=== PATIENT | female | born 1990 | race African-American/Black ===

== ENCOUNTER 2025-03-21 14:22 | Emergency (ER) | payer OTHER ==
[2025-03-21] MEDS ORDERED: ACETAMINOPHEN 500 MG TAB ONE (15:52)
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
[2025-03-21 17:44] VITALS: TEMP 98
[2025-03-21 17:46] VITALS: O2SAT 100
[2025-03-21 17:47] VITALS: BP 103/62
== END 2025-03-21 17:31 | disposition left against medical advice (07) ==
LOC: ER 14:22
DX: T20.20XA Burn of second degree of head, face, and neck, unspecified site, initial encounter (principal); T22.10XA Burn of first degree of shoulder and upper limb, except wrist and hand, unspecified site, initial encounter; T31.0 Burns involving less than 10% of body surface
CPT/HCPCS: 99284